=== PATIENT | female | born 1995 | race African-American/Black ===

== ENCOUNTER 2024-07-08 13:22 | Emergency (ER) | payer OTHER ==
[2024-07-08 13:31] VITALS: BP 109/56; PULSE 72; RESP 16; TEMP 97.8; BMI 26.9
[2024-07-08 14:21] LABS: EPI CELLS 14 /uL (0-25.1); HYALINE CASTS 0 /uL (0-3.1); PH,URINE 6.5 (5.0-8.0); URINE APPEARANCE CLEAR; URINE BACTERIA 141 /uL (0-1359); URINE BILIRUBIN NEGATIVE (NEGATIVE); URINE COLOR YELLOW; URINE GLUCOSE (UA) NEGATIVE (NEGATIVE); URINE KETONE NEGATIVE (NEGATIVE); URINE LEUK ESTERASE TRACE (NEGATIVE); URINE NITRITE NEGATIVE (NEGATIVE); URINE PROTEIN NEGATIVE (NEGATIVE); URINE RBC 10 /uL (0-23.9); URINE WBC 21 /uL (0-25.8)
[2024-07-08] MEDS ORDERED: KETOROLAC TROMETHAMINE 30 MG/1 ML VIAL ONE (14:30)
[2024-07-08] MEDS: KETOROLAC TROMETHAMINE 30 MG/1 ML VIAL IM ONE (14:37)
== END 2024-07-08 14:49 | disposition home or self-care (01) ==
LOC: JERFT 13:22
PROC: 3E0233Z Introduction of Anti-inflammatory into Muscle, Percutaneous Approach (ICD-10-PCS; principal; 2024-07-08)
DX: M54.50 Low back pain, unspecified (principal)
CPT/HCPCS: 81003; 84703; 87086; 99284-25

== ENCOUNTER 2024-08-23 12:14 | Emergency (ER) | payer OTHER ==
[2024-08-23 12:24] VITALS: BP 122/59; PULSE 68; RESP 18; TEMP 97.8; BMI 26.9
[2024-08-23] MEDS ORDERED: LIDOCAINE 4% PATCH TP ONE (13:26)
[2024-08-23] MEDS ORDERED: IBUPROFEN 600 MG TABLET (FP) PO ONE (13:26)
[2024-08-23] MEDS: LIDOCAINE 4% PATCH TP ONE (13:33)
[2024-08-23] MEDS: IBUPROFEN 600 MG TABLET (FP) PO ONE (13:33)
== END 2024-08-23 13:49 | disposition home or self-care (01) ==
LOC: JERFT 12:14
DX: S93.402A Sprain of unspecified ligament of left ankle, initial encounter (principal); X50.1XXA Overexertion from prolonged static or awkward postures, initial encounter
CPT/HCPCS: 73610-TC-LT-FY; 73630-TC-LT; 99283-25